=== PATIENT | female | born 1945 | race Caucasian/White ===

== ENCOUNTER 2018-08-19 08:11 | Outpatient (CLI) | payer MEDICARE ==
--- NOTE | 2018-08-19 11:02 | CT ---
CT NECK WITH AND WITHOUT CONTRAST: (PARATHYROID PROTOCOL) 08/19/2018 HISTORY: 72-year-old female with hyperparathyroidism and hypercalcemia. TECHNIQUE: IV contrast: 100 mL Isovue 370. Pre-contrast scan, 25 second post-contrast scan, and 65 second post-contrast scan, all performed from 4.5 cm inferior to the emeli, to the level of the lower orbits. Coronal and sagittal reconstructions. FINDINGS: There are multiple thyroid nodules, larger and more numerous in the right lobe than in the left. Abu tting the posterior surface of the lower pole of the right lobe of the thyroid gland, at the C7 level , there is a vertically elongated, 1.3 x 0.4 x 0.4 cm, strongly enhancing lesion during the arterial phase, with rapid washout and no intrinsic iodine content (axial image 43 of 83, series 3; sagittal i mage 39 of 82, series 6; coronal image 63 of 105, series 5). This is a good candidate for parathyroi d adenoma. It abuts the right side of the junction between the pharynx and upper-most esophagus, christelle r the tracheoesophageal groove, and is just medial to the right longus colli muscle, abutting the C7 vertebral body. On the contralateral left side, located slightly more superiorly, at the C6-C7 level, there is a smal ler lesion with similar characteristics, measuring 0.6 x 0.4 x 0.2 cm, abutting the left cricopharyng eus musculature, posterior to the upper pole of the left lobe of the thyroid gland (axial image 49 of 83, series 3; sagittal image 32 of 82, series 6, coronal image 59 of 105, series 5). This is anothe r good candidate for parathyroid adenoma. IMPRESSION: 1. Two good candidates for small bilateral parathyroid adenomas, both retrothyroidal. 2. Multiple thyroid nodules, especially on the right side. POS: [facility]
== END 2018-08-19 08:12 | disposition home or self-care (01) ==
LOC: BICCT 08:11
PROVIDERS: ATTEND Otolaryngology Plastic Surgery within the Head & Neck
DX: E21.0 Primary hyperparathyroidism (principal); E04.2 Nontoxic multinodular goiter
CPT/HCPCS: 70492; 82565

== ENCOUNTER 2019-03-26 09:53 | Outpatient (CLI) | payer MEDICARE ==
[2019-03-26] MEDS ORDERED: Iopamidol 370 76% 50 ML VIAL FS ONE (10:22)
[2019-03-26] MEDS ORDERED: Iopamidol 370 76% 100 ML VIAL ONE (10:22)
--- NOTE | 2019-03-26 12:09 | CT ---
SOFT TISSUE NECK CT WITH AND WITHOUT CONTRAST: HISTORY: Elevated calcium and elevated parathyroid levels. COMPARISON: 08/19/2018. CORRELATION: Patient has been scheduled for a nuclear medicine parathyroid scan. FINDINGS: Visualized brain parenchyma is unremarkable. Bilateral orbits are unremarkable. Adequate aeration of the sinuses and mastoid air cells. Degenerative changes in both mandibular condyles. Aerodigestive tract: Patent. No obvious mucosal abnormality. Limited evaluation due to dental amalgam artifact. Midline fatty raphae of the tongue is preserved. Epiglottis has a normal caliber. Preepiglottic fat is preserved. The supraglottic, glottic and subglottic larynx is unremarkable. Appropriate attenuation of the paraspinal muscles. Lymph nodes: No significant lymphadenopathy by size criteria. Current vessels of the neck are patent. Cervical spine vertebral body height is maintained. No fracture.. Degenerative change at C3-C4 with r esultant mild to moderate central canal stenosis. Upper mediastinum is unremarkable. Chronic lung parenchymal changes are noted. Indeterminate solid no dule in the superior segment of the right lower lobe measuring 0.5 x 0.6 cm. Previously, nodule measured 0.5 x 0.4 cm. Heterogeneous thyroid gland. Redemonstration of an intrinsically hypodense focus posterior to the right thyroid lobe, near the tra cheoesophageal groove. This lesion does demonstrate enhancement and measures 0.5 cm in maximal dimension. There is a stable essentially linear focus of enhancement posterior to the left thyroid lo be, measuring 0.4 x 0.2 cm. No additional intrinsically hypodense, enhancing foci are noted in the left neck. IMPRESSION: 1. Redemonstration of 2 lesions in the left and right neck as described above. These lesions are unch anged from the previous examination. It is uncertain if these are true parathyroid adenoma is. Correlation with nuclear medicine imaging would be beneficial. 3. Heterogeneous right thyroid lobe with multiple hypodense nodules. Consider thyroid ultrasound pos sible candidates to undergo fine-needle aspiration. Transcribed Date/Time: 03/26/2019 12:35 PM
== END 2019-03-26 09:54 | disposition home or self-care (01) ==
LOC: CT 09:53
PROVIDERS: ATTEND Otolaryngology Plastic Surgery within the Head & Neck
DX: E21.0 Primary hyperparathyroidism (principal); E04.2 Nontoxic multinodular goiter; E07.9 Disorder of thyroid, unspecified
CPT/HCPCS: 70492; 82565

== ENCOUNTER 2019-04-01 11:13 | Outpatient (CLI) | payer MEDICARE ==
--- NOTE | 2019-04-01 16:51 | NM ---
Radionucleotide parathyroid scan HISTORY: Hyperparathyroidism. FINDINGS: Correlated with CT exams from 03/26/2019 and 08/19/2018. Early images show uptake within the thyroid gland and salivary glands. At 1 hour, a focus of persiste nt uptake remains at the inferior pole of each kidney. At 2 hours, no focal abnormalities remain at either inferior thyroid pole. No abnormal uptake evident within the upper mediastinum. IMPRESSION: No scintigraphic abnormalities are demonstrated to confirm hyperactivity associated with the subcentimeter bilateral lower pole thyroid nodules.
== END 2019-04-01 11:14 | disposition home or self-care (01) ==
LOC: NM 11:13
PROVIDERS: ATTEND Otolaryngology Plastic Surgery within the Head & Neck
DX: E21.0 Primary hyperparathyroidism (principal); E04.2 Nontoxic multinodular goiter
CPT/HCPCS: 78072; A9500

== ENCOUNTER 2021-03-12 09:24 | Outpatient (CLI) | payer MEDICARE ==
[2021-03-12] MEDS ORDERED: Iopamidol 370 76% 100 ML VIAL ONE (11:55)
== END 2021-03-12 09:25 | disposition home or self-care (01) ==
LOC: CT 09:24
PROVIDERS: ATTEND Otolaryngology Plastic Surgery within the Head & Neck
DX: E21.0 Primary hyperparathyroidism (principal); E04.2 Nontoxic multinodular goiter; D34 Benign neoplasm of thyroid gland
CPT/HCPCS: 70492; 78072; 82565; A9500; Q9967